=== PATIENT | female | born 1990 | race Caucasian/White ===

== ENCOUNTER 2023-03-22 18:35 | Emergency (ER) | payer SELFPAY ==
[~2023-03-22] VITALS: Ht 152.4 cm; Wt 63.0 kg
[2023-03-22 18:41] VITALS: BP 115/64; TEMP 98.2; O2SAT 100
[2023-03-22 18:42] VITALS: PULSE 104; RESP 16
== END 2023-03-22 22:23 | disposition left against medical advice (07) ==
LOC: ER 18:35
DX: R06.02 Shortness of breath (principal); Z53.21 Procedure and treatment not carried out due to patient leaving prior to being seen by health care provider
CPT/HCPCS: 99281